=== PATIENT | male | born 1985 | race Caucasian/White ===

== ENCOUNTER 2017-02-22 16:59 | Emergency (ER) | payer MEDICAID, OTHER ==
[2017-02-22 17:42] VITALS: RESP 16; TEMP 97.6
[2017-02-22 19:02] VITALS: BP 120/79; PULSE 52; O2SAT 97
== END 2017-02-22 19:34 | disposition home or self-care (01) | DRG 552 ==
LOC: ED 16:59
DX: M54.2 Cervicalgia (principal); M54.6 Pain in thoracic spine; M62.830 Muscle spasm of back
CPT/HCPCS: 72040; 73030; 99282; 99283

== ENCOUNTER 2017-09-01 16:37 | Emergency (ER) | payer MEDICAID, OTHER ==
[2017-09-01] MEDS ORDERED: DIPHENHYDRAMINE 50 MG/ML SOL IV ONE (17:01)
[2017-09-01] MEDS ORDERED: KETOROLAC TROMETHAMINE 30 MG/ML SOL IV ONE (17:01)
[2017-09-01] MEDS ORDERED: ONDANSETRON HCL 4 MG/2 ML SOL IV ONE (17:01)
[2017-09-01] MEDS ORDERED: CYCLOBENZAPRINE 10 MG TAB PO ONE (17:02)
[2017-09-01] MEDS ORDERED: CYCLOBENZAPRINE 10 MG TAB ONE (17:10)
[2017-09-01] MEDS ORDERED: DIPHENHYDRAMINE 50 MG/ML SOL ONE (17:10)
[2017-09-01] MEDS ORDERED: KETOROLAC TROMETHAMINE 30 MG/ML SOL ONE (17:10)
[2017-09-01 17:15] VITALS: BP 105/62; PULSE 60; RESP 16; TEMP 97.1; O2SAT 100
[2017-09-01] MEDS ORDERED: LIDOCAINE HCL 2% MPF SOL SC ONE (17:31)
[2017-09-01] MEDS ORDERED: LIDOCAINE HCL 2% MPF SOL ONE (17:35)
== END 2017-09-01 18:05 | disposition home or self-care (01) | DRG 93 ==
LOC: ED 16:37
DX: G89.29 Other chronic pain (principal); M54.5 Low back pain
CPT/HCPCS: 99283; J1200; J1885

== ENCOUNTER 2017-09-02 13:38 | Emergency (ER) | payer OTHER ==
[2017-09-02 13:58] VITALS: RESP 20; TEMP 98.2
[2017-09-02] MEDS ORDERED: KETOROLAC TROMETHAMINE 30 MG/ML SOL IM ONE (13:58)
[2017-09-02 14:12] LABS: APPEARANCE,URINE Clear; BILIRUBIN,URINE NEGATIVE (NEGATIVE); COLOR,URINE Yellow; GLUCOSE, URINE (UA) NEGATIVE (NEGATIVE); KETONES,URINE TRACE (NEGATIVE); LEUKOCYTE ESTERASE ,URINE NEGATIVE (NEGATIVE); NITRATE,URINE NEGATIVE (NEGATIVE); OCCULT BLOOD,URINE 3+ (NEG-TRACE); UROBILINOGEN,URINE 0.2 (0.2-1.0 EU)
[2017-09-02] MEDS ORDERED: KETOROLAC TROMETHAMINE 30 MG/ML SOL ONE (14:15)
[2017-09-02 14:30] LABS: WBC,URINE 0-3 (0-5AV/HPF)
[2017-09-02 14:30] LABS: CALCIUM 8.7 mg/dl (8.5-10.1); POTASSIUM 4.4 mMol/L (3.5-5.1)
[2017-09-02 14:57] VITALS: BP 125/82; PULSE 71; O2SAT 97
== END 2017-09-02 14:54 | disposition home or self-care (01) | DRG 694 ==
LOC: ED 13:38
DX: N13.2 Hydronephrosis with renal and ureteral calculous obstruction (principal)
CPT/HCPCS: 36415; 74176; 80048; 81001; 96372; 99283; 99284; J1885

== ENCOUNTER 2018-01-17 13:42 | Emergency (ER) | payer OTHER ==
[2018-01-17 14:12] VITALS: RESP 16; TEMP 97.2
[2018-01-17] MEDS ORDERED: CYCLOBENZAPRINE 10 MG TAB PO ONE (14:27)
[2018-01-17 14:49] LABS: BASOPHILS % (AUTO) 1 % (0-3); EOSINOPHILS % (AUTO) 1 % (0-9); HEMATOCRIT 40 % (39-53); MEAN CORPUSCULAR HGB CONC 35.3 gm/dl (32.0-36.0); MEAN CORPUSCULAR VOLUME 86 fL (80-100); MONOCYTES % (AUTO) 9.8 % (0-12); NEUTROPHILS % (AUTO) 47.8 % (37-80)
[2018-01-17 15:00] LABS: ALBUMIN 3.8 gm/dl (3.4-5.0); ALT 25 IU/L (14-63); CALCIUM 8.7 mg/dl (8.5-10.1); GLOM FILT RATE 85 mL/min (>60); POTASSIUM 3.6 mMol/L (3.5-5.1); SODIUM 140 mMol/L (136-145); THYROID STIMULATING HORMONE 0.345 uIU/ml (0.358-3.740)
[2018-01-17] MEDS ORDERED: CYCLOBENZAPRINE 10 MG TAB ONE (15:23)
[2018-01-17 15:43] VITALS: BP 147/93; PULSE 93; O2SAT 95
[2018-01-17 16:28] LABS: APPEARANCE,URINE Clear; BILIRUBIN,URINE NEGATIVE (NEGATIVE); COLOR,URINE Yellow; GLUCOSE, URINE (UA) NEGATIVE (NEGATIVE); KETONES,URINE NEGATIVE (NEGATIVE); LEUKOCYTE ESTERASE ,URINE NEGATIVE (NEGATIVE); NITRATE,URINE NEGATIVE (NEGATIVE); OCCULT BLOOD,URINE NEGATIVE (NEG-TRACE); PH,URINE 5.5; UROBILINOGEN,URINE 0.2 (0.2-1.0 EU)
[2018-01-17 16:35] LABS: RBC,URINE NEG (0-3AV/HPF)
[2018-01-17 16:36] LABS: AMPHETAMINES POSITIVE (NEGATIVE); METHADONE NEGATIVE (NEGATIVE); OPIATES(OP13) NEGATIVE (NEGATIVE); OXYCODONE(OXY) NEGATIVE (NEGATIVE); PROPOXYPHENE(PPX) NEGATIVE (NEGATIVE); TRICYCLIC ANTIDEPRESSANTS NEGATIVE (NEGATIVE); WBC,URINE 0-1 (0-5AV/HPF)
== END 2018-01-17 18:07 | DRG 897 ==
LOC: ED 13:42
DX: F15.20 Other stimulant dependence, uncomplicated (principal); F10.20 Alcohol dependence, uncomplicated
CPT/HCPCS: 36415; 80053; 80305; 80307; 81001; 83735; 84443; 85025; 85610; 99284; A9270-GY

== ENCOUNTER 2018-03-05 19:01 | Emergency (ER) | payer OTHER ==
[2018-03-05 19:30] VITALS: RESP 18
[2018-03-05] MEDS ORDERED: ONDANSETRON HCL 4 MG/2 ML SOL IV ONE (19:42)
[2018-03-05] MEDS: SODIUM CHLORIDE 0.9% 1000ML 1,000 ML IV SCH ×2 (19:45→20:46)
[2018-03-05] MEDS ORDERED: ONDANSETRON HCL 4 MG/2 ML SOL ONE (19:53)
[2018-03-05 19:59] LABS: BASOPHILS % (AUTO) 1 % (0-3); EOSINOPHILS % (AUTO) 0 % (0-9); HEMATOCRIT 42 % (39-53); HEMOGLOBIN 14.7 gm/dl (13.5-17.7); LYMPHOCYTES % (AUTO) 14.5 % (10-50); MEAN CORPUSCULAR HEMOGLOBIN 30.2 pg (27.0-32.0); MEAN CORPUSCULAR HGB CONC 35.3 gm/dl (32.0-36.0); MEAN CORPUSCULAR VOLUME 86 fL (80-100); MONOCYTES % (AUTO) 7.3 % (0-12); NEUTROPHILS % (AUTO) 77.6 % (37-80)
[2018-03-05 20:11] LABS: ALBUMIN 3.7 gm/dl (3.4-5.0); BILIRUBIN,TOTAL 0.3 mg/dl (0.2-1.0); CALCIUM 7.9 mg/dl (8.5-10.1); CARBON DIOXIDE 26.7 mEq/L (21-32); CREATININE 1.2 mg/dl (0.80-1.30); POTASSIUM 3.4 mMol/L (3.5-5.1); TOTAL PROTEIN 6.5 gm/dl (6.4-8.2)
[2018-03-05] MEDS ORDERED: PROCHLORPERAZINE EDISYLATE 5 MG/ML SOL IV ONE (20:28)
[2018-03-05] MEDS ORDERED: PROCHLORPERAZINE EDISYLATE 5 MG/ML SOL ONE (20:29)
[2018-03-05 21:11] VITALS: BP 97/58; PULSE 62; TEMP 97.4; O2SAT 97
== END 2018-03-05 21:13 | disposition home or self-care (01) | DRG 392 ==
LOC: ED 19:01
DX: K52.9 Noninfective gastroenteritis and colitis, unspecified (principal); E83.51 Hypocalcemia
CPT/HCPCS: 80053; 85025; 99284; J0780; J2405

== ENCOUNTER 2018-04-02 10:34 | Emergency (ER) | payer OTHER ==
[2018-04-02 11:10] VITALS: BP 131/74; PULSE 77; RESP 16; TEMP 96.9; O2SAT 98
[2018-04-02] MEDS ORDERED: LORAZEPAM 0.5 MG TAB ONE (11:13)
[2018-04-02] MEDS ORDERED: LORAZEPAM 0.5 MG TAB PO ONE (11:14)
[2018-04-02 12:09] LABS: HEMATOCRIT 44 % (39-53); MEAN CORPUSCULAR HEMOGLOBIN 28.8 pg (27.0-32.0); MEAN CORPUSCULAR HGB CONC 33.8 gm/dl (32.0-36.0); MEAN CORPUSCULAR VOLUME 85 fL (80-100)
[2018-04-02 12:16] LABS: ALBUMIN 3.4 gm/dl (3.4-5.0); ALKALINE PHOSPHATASE 93 IU/L (46-116); ALT 63 IU/L (14-63); AST 35 IU/L (15-37); BILIRUBIN,TOTAL 0.6 mg/dl (0.2-1.0); BLOOD UREA NITROGEN 22 mg/dl (7-18); CALCIUM 8.5 mg/dl (8.5-10.1); CARBON DIOXIDE 29.4 mEq/L (21-32); CHLORIDE 103 mMol/L (98-107); CREATININE 1.16 mg/dl (0.80-1.30); GLOM FILT RATE 73 mL/min (>60); GLUCOSE 99 mg/dl (74-106); POTASSIUM 4.6 mMol/L (3.5-5.1); SODIUM 137 mMol/L (136-145); TOTAL PROTEIN 6.9 gm/dl (6.4-8.2)
[2018-04-02 12:17] LABS: ALCOHOL < 0.003 gm/dl (0.000-0.08)
[2018-04-02 12:30] LABS: BARBITUATES NEGATIVE (NEGATIVE); BENZODIAZEPINES NEGATIVE (NEGATIVE); METHADONE NEGATIVE (NEGATIVE); TRICYCLIC ANTIDEPRESSANTS NEGATIVE (NEGATIVE)
[2018-04-02 12:31] LABS: AMPHETAMINES POSITIVE (NEGATIVE); CANNABINOL(THC) NEGATIVE (NEGATIVE); COCAINE(COC) NEGATIVE (NEGATIVE); METHAMPHETAMINES POSITIVE (NEGATIVE); OPIATES(OP13) NEGATIVE (NEGATIVE); OXYCODONE(OXY) NEGATIVE (NEGATIVE); PROPOXYPHENE(PPX) NEGATIVE (NEGATIVE)
[2018-04-02 12:37] LABS: BAND NEUTROPHILS % (MANUAL) 4 %; BASOPHILS % (MANUAL) 1 % (0-3); EOSINOPHILS % (MANUAL) 2 % (0-9); LYMPHOCYTES % (MANUAL) 36 % (10-50); MONOCYTES % (MANUAL) 4 % (0-12); NEUTROPHILS % (MANUAL) 53 % (37-80); NORMAL RBCS PRESENT
== END 2018-04-02 15:43 | disposition short-term general hospital (02) | DRG 897 ==
LOC: ED 10:34
DX: F15.20 Other stimulant dependence, uncomplicated (principal); R45.851 Suicidal ideations; F41.8 Other specified anxiety disorders
CPT/HCPCS: 36415; 80053; 80305; 80307; 85007; 85027; 99282; 99284; A9270-GY

== ENCOUNTER 2019-01-11 22:44 | Emergency (ER) | payer OTHER ==
[2019-01-11 22:55] VITALS: BP 131/75; PULSE 93; RESP 16; TEMP 97; O2SAT 97
[2019-01-11] MEDS ORDERED: LIDOCAINE HCL 1% MDV 50 ML SOL SC ONE (23:09)
[2019-01-11] MEDS ORDERED: LIDOCAINE HCL 1% MPF 30 SOL ONE (23:09)
[2019-01-11] MEDS ORDERED: BACITRACIN 500 U/GM OIN TOP ONE ×2 (23:21→23:22)
== END 2019-01-11 23:27 | disposition home or self-care (01) | DRG 605 ==
LOC: ED 22:44
DX: S61.511A Laceration without foreign body of right wrist, initial encounter (principal)
CPT/HCPCS: 12001; 99283; A6402; A9270-GY; J2001